=== PATIENT | male | born 1975 | race Caucasian/White ===

== ENCOUNTER 2019-09-09 02:10 | Day surgery (SDC) | payer MEDICAID, SELFPAY ==
[~2019-09-09] VITALS: Ht 188 cm; Wt 93.9 kg
[2019-09-09] MEDS ORDERED: SODIUM CHLORIDE 0.9% 1,000ML IVBOLUS ONE (02:30)
[2019-09-09] MEDS ORDERED: MORPHINE SULFATE 4 MG/ML, 1ML IVPush PRN ×3 (02:30→11:30)
[2019-09-09] MEDS ORDERED: ONDANSETRON 2MG/ML, 2ML IVPush ONE (02:30)
--- NOTE | 2019-09-09 02:31 | NUR ---
iv site started, labs drawn. monitors applied, siderails up x2, call light within reach
[2019-09-09] MEDS ORDERED: METF500T17 PO (02:32)
[2019-09-09] MEDS ORDERED: ONDANSETRON 2MG/ML, 2ML ONE ×2 (02:37→09:57)
[2019-09-09] MEDS ORDERED: MORPHINE SULFATE 4 MG/ML, 1ML ONE ×2 (02:38→05:15)
--- NOTE | 2019-09-09 02:41 | NUR ---
pt medicated per mar
[2019-09-09 02:58] LABS: BASOPHILS # (AUTO) 0.05 x10^3/uL (0-0.1); BASOPHILS % (AUTO) 1 % (0-1); EOSINOPHILS # (AUTO) 0.25 x10^3/uL (0-0.4); EOSINOPHILS % (AUTO) 2 % (1-7); LYMPHOCYTES # (AUTO) 1.98 x10^3/uL (1-3.4); LYMPHOCYTES % (AUTO) 19 % (22-44); MD NO; MEAN CORPUSCULAR HEMOGLOBIN 30.5 pg (27.5-34.5); MEAN CORPUSCULAR HGB CONC 33.2 g/dL (33.2-36.2); MEAN CORPUSCULAR VOLUME 91.7 fL (81-97); MEAN PLATELET VOLUME 8.7 fL (7.4-10.4); MONOCYTES # (AUTO) 1.08 x10^3/uL (0.2-0.8); MONOCYTES % (AUTO) 10 % (2-9); NEUTROPHILS # (AUTO) 7.16 x10^3/uL (1.8-6.8); NEUTROPHILS % (AUTO) 68 % (42-75); PLATELET COUNT 312 x10^3/uL (130-400); RED BLOOD COUNT 5.41 x10^6/uL (4.38-5.82); RED CELL DISTRIBUTION WIDTH 12.6 % (9.4-14.8)
[2019-09-09 03:08] LABS: ALBUMIN 3.9 g/dL (3.4-5.0); ANION GAP 7 mmol/L (5-15); CHLORIDE 104 mmol/L (98-107)
[2019-09-09 03:11] LABS: ALANINE AMINOTRANSFERASE 41 U/L (12-78); ALKALINE PHOSPHATASE 122 U/L (45-117); BILIRUBIN,TOTAL 1.5 mg/dL (0.2-1.0); CREATININE 0.97 mg/dL (0.7-1.3); TOTAL PROTEIN 8.3 g/dL (6.4-8.2)
--- NOTE | 2019-09-09 03:17 | NUR ---
PT RESTING WITH EYES CLOSED, MONITORS IN PLACE, STATED " NOT ABLE TO GIVE STOOL SAMPLE NOW", CALL LIGHT WITHIN REACH, AWAITING LAB AND CT RESULTS
--- NOTE | 2019-09-09 03:54 | NUR ---
STOOL SAMPLE TAKEN TO LAB
--- NOTE | 2019-09-09 03:58 | NUR ---
pt resting on gurney watching tv, denies needs, stated "pain is better", monitors in place, call light within reach. awaiting lab and ct result
[2019-09-09 04:48] LABS: CLOSTRIDIUM DIFFICILE ANTIGEN NEGATIVE; CLOSTRIDIUM DIFFICILE TOXIN NEGATIVE (Negative)
[2019-09-09] MEDS ORDERED: SODIUM CHLORIDE 0.9% 1,000 ML IV ONE (05:28)
[2019-09-09] MEDS ORDERED: HYDROmorphone 1 MG/ML, 1ML INJ IVPush PRN (05:30)
[2019-09-09] MEDS ORDERED: OMNIPAQUE 350 MG/ML, 100ML BOTTLE ONE (05:46)
--- NOTE | 2019-09-09 06:25 | NUR ---
PT RESTING WITH EYES CLOSED, NADN, RESPIRATIONS EVEN AND UNLABORED, MONITORS IN PLACE, SIDERAILSUP X2, CALL LIGHT WITHIN REACH. PT AWAITING ADMIT
--- NOTE | 2019-09-09 06:53 | NUR ---
RECEIVED REPORT FROM [facility] PT LAYING ON GURDHARA AWAKE & CALM, RESPONDS APPROP TO STAFF, COMFORT MEASURES PROVIDED, CALL LIGHT WITHIN REACH.
[2019-09-09 07:30] VITALS: BP 107/49
[2019-09-09] MEDS ORDERED: MIDAZOLAM 1 MG/ML, 2ML ONE (09:55)
[2019-09-09] MEDS ORDERED: FENTANYL PF 250 MCG/5ML ONE (09:55)
[2019-09-09] MEDS ORDERED: LIDOCAINE-MPF 2% ,5ML ONE (09:57)
[2019-09-09] MEDS ORDERED: PHENYLEPHRINE 10 MG/ML ONE (09:57)
[2019-09-09] MEDS ORDERED: PROPOFOL 10 MG/ML, 20ML ONE (09:57)
[2019-09-09] MEDS ORDERED: ROCURONIUM 10MG/ML,5ML ONE (09:57)
[2019-09-09] MEDS ORDERED: CEFOTETAN PMX 2GM/50ML 50 ML ONE (09:57)
[2019-09-09] MEDS ORDERED: DEXAMETHASONE 4 MG/ML, 1ML ONE (09:57)
[2019-09-09] MEDS ORDERED: BUPIVACAINE/EPI 0.5% 1:200K ONE (10:12)
[2019-09-09] MEDS ORDERED: PROMETHAZINE 25 MG/ML, 1ML IV PRN (11:00)
[2019-09-09] MEDS ORDERED: ACETAMINOPHEN 325 MG TABLET PO PRN (11:00)
[2019-09-09] MEDS ORDERED: HYDROmorphone 2 MG/ML, 1ML IVPush PRN (11:00)
[2019-09-09] MEDS ORDERED: MEPERIDINE/PF 25MG/ML,1ML IVPush PRN (11:00)
[2019-09-09] MEDS ORDERED: OXYcodone 5 MG/5 ML ORAL.SOL UDC PO PRN (11:00)
[2019-09-09] MEDS ORDERED: HALOPERIDOL 5 MG/ML IV PRN (11:00)
[2019-09-09] MEDS ORDERED: LABETALOL 5MG/ML, 20ML IV PRN (11:00)
[2019-09-09] MEDS ORDERED: hydrALAzine 20 MG/ML, 1ML IV PRN ×2 (11:00→11:30)
[2019-09-09] MEDS ORDERED: METHOCARBAMOL 1,000 MG in DEXTROSE 5% 100 ML IV PRN (11:00)
[2019-09-09] MEDS ORDERED: FENTANYL PF 100 MCG/2ML IV PRN (11:00)
[2019-09-09] MEDS ORDERED: BUPIVACAINE/EPI 0.5% 1:200K INFIL ONE (11:10)
[2019-09-09] MEDS ORDERED: SUGAMMADEX 200 MG/2 ML IVPush ONE (11:16)
[2019-09-09] MEDS ORDERED: POTASSIUM CHLORIDE 20 MEQ in D5%-0.45% NACL 1,000 ML IV SCH (11:21)
[2019-09-09] MEDS ORDERED: KETOROLAC 30 MG/1 ML IV PRN (11:30)
[2019-09-09] MEDS ORDERED: PROMETHAZINE 25 MG/ML, 1ML IM PRN (11:30)
[2019-09-09] MEDS ORDERED: DIPHENHYDRAMINE 25 MG CAPSULE PO PRN (11:30)
[2019-09-09] MEDS ORDERED: PROCHLORPERAZINE 5 MG/ML, 2ML IV ONE (11:30)
[2019-09-09] MEDS ORDERED: NICOTINE 21 MG/24 HR PATCH.TD24 TD ONE (11:30)
[2019-09-09] MEDS ORDERED: ONDANSETRON 2MG/ML, 2ML IVPush PRN (11:30)
[2019-09-09] MEDS ORDERED: OXYcodone 5 MG/5 ML ORAL.SOL UDC ONE (11:51)
[2019-09-09 12:15] VITALS: BP 123/86
[2019-09-09 12:19] VITALS: BP 123/86
[2019-09-09] MEDS ORDERED: FLU VACC QS2019-20 36MOS UP/PF 0.5 ML IM-VACC ONE (12:30)
[2019-09-09] MEDS: D5%-0.45NACL+KCL 20MEQ 1,000 ML IV SCH ×2 (13:09→20:51)
[2019-09-09] MEDS: OXYcodone/APAP 5/325MG TABLET PO PRN ×2 (16:32→21:02)
[2019-09-09] MEDS: INSULIN LISPRO 100 UNITS/ML, PEN SQ-INSULIN SCH ×2 (16:33→21:03)
[2019-09-09 19:00] VITALS: BP 116/75
[2019-09-09 23:56] VITALS: BP 134/88
[2019-09-10 04:23] VITALS: BP 123/73
[2019-09-10 05:04] LABS: BASOPHILS # (AUTO) 0.04 x10^3/uL (0-0.1); BASOPHILS % (AUTO) 0 % (0-1); EOSINOPHILS % (AUTO) 1 % (1-7); LYMPHOCYTES # (AUTO) 2.19 x10^3/uL (1-3.4); LYMPHOCYTES % (AUTO) 21 % (22-44); MD NO; MEAN CORPUSCULAR HEMOGLOBIN 30.8 pg (27.5-34.5); MEAN CORPUSCULAR HGB CONC 33.6 g/dL (33.2-36.2); MEAN CORPUSCULAR VOLUME 91.8 fL (81-97); MEAN PLATELET VOLUME 8.4 fL (7.4-10.4); MONOCYTES # (AUTO) 0.95 x10^3/uL (0.2-0.8); MONOCYTES % (AUTO) 9 % (2-9); NEUTROPHILS # (AUTO) 7.15 x10^3/uL (1.8-6.8); NEUTROPHILS % (AUTO) 69 % (42-75); PLATELET COUNT 276 x10^3/uL (130-400); RED BLOOD COUNT 4.57 x10^6/uL (4.38-5.82); RED CELL DISTRIBUTION WIDTH 12.7 % (9.4-14.8)
[2019-09-10 05:15] LABS: ANION GAP 6 mmol/L (5-15); CALCIUM 8.5 mg/dL (8.5-10.1); CHLORIDE 111 mmol/L (98-107); CREATININE 0.74 mg/dL (0.7-1.3)
[2019-09-10] MEDS: OXYcodone/APAP 5/325MG TABLET PO PRN ×2 (05:56→10:24)
[2019-09-10 06:52] VITALS: BP 117/74
[2019-09-10] MEDS: INSULIN LISPRO 100 UNITS/ML, PEN SQ-INSULIN SCH ×2 (07:00→11:25)
[2019-09-10] MEDS: D5%-0.45NACL+KCL 20MEQ 1,000 ML IV SCH ×2 (07:07→07:17)
[2019-09-10] MEDS ORDERED: ENOXAPARIN 40 MG/0.4 ML SQ SCH (09:00)
[2019-09-10] MEDS ORDERED: NICOTINE 21 MG/24 HR PATCH.TD24 TD SCH (09:00)
[2019-09-10] MEDS ORDERED: OXYcodone/APAP 5/325MG TABLET PO PRN (10:00)
[2019-09-10] MEDS ORDERED: KETOROLAC 10MG TABLET PO PRN (10:00)
[2019-09-10] MEDS ORDERED: KETO10TA PO (10:10)
[2019-09-10] MEDS ORDERED: TRAM50TA2 PO (10:10)
[2019-09-10] MEDS ORDERED: DOCU-131 PO (10:11)
[2019-09-10 12:15] VITALS: BP 120/72
== END 2019-09-10 10:07 | disposition home or self-care (01) ==
LOC: ED 05:49 → OUT 06:03 → EDIP 06:03 → UNDOADMIN 06:03 → 4NE 07:14 → EDIP 07:14 → EDSTATUS 14:17 → OUT 09-10 10:07 → UNDODISIN 09-10 12:36 → OUT 09-10 17:00
PROVIDERS: ATTEND Student in an Organized Health Care Education/Training Program
DX: Z03.89 Encounter for observation for other suspected diseases and conditions ruled out (principal); Z23 Encounter for immunization; E11.9 Type 2 diabetes mellitus without complications; F12.90 Cannabis use, unspecified, uncomplicated; F17.200 Nicotine dependence, unspecified, uncomplicated; Z79.84 Long term (current) use of oral hypoglycemic drugs
CPT/HCPCS: 00840; 36415; 49320; 71045; 74177; 80048; 80053; 82040; 82962; 83690; 85025; 87324; 89055; 90471; 90686; J1100; J1650; J1815; J1885; J2250; J2270; J2370; J2405; J2704; J3010; J3480; J3490; J7030; Q9967; G0378

== ENCOUNTER 2019-10-25 08:54 | Emergency (ER) | payer MEDICAID ==
[~2019-10-25] VITALS: Ht 188 cm; Wt 92.0 kg
[~2019-10-25 08:54] MED LIST: DOCU-131 PO; KETO10TA PO; METF500T17 PO; TRAM50TA2 PO
--- NOTE | 2019-10-25 09:00 | NUR ---
PT HERE WITH C/O REDNESS SURROUNDING SURGICAL INSERTION SITE. STATES HE HAD SOME PUSS COME OUT. PT WITH AREAS OF ERYTHMA, NO DRAINAGE APPECIATED. PT DENIES PAIN AT THIS TIME
[2019-10-25] MEDS ORDERED: ONDANSETRON ODT 4 MG PO ONE (09:30)
[2019-10-25] MEDS ORDERED: ONDANSETRON ODT 4 MG ONE (09:34)
[2019-10-25] MEDS ORDERED: INSULIN SINGLE DOSE, ER ONE (09:47)
--- NOTE | 2019-10-25 09:59 | NUR ---
PIV INITIATED, PT MEDICATED PER DEC. BOLUS HUNG PER MD ORDER
[2019-10-25] MEDS ORDERED: SODIUM CHLORIDE 0.9% 1,000ML IVBOLUS ONE (10:00)
[2019-10-25] MEDS ORDERED: INSULIN REGULAR 100 UNITS/ML, 3ML VIAL IV ONE (10:00)
[2019-10-25 10:12] VITALS: BP 124/91
[2019-10-25 10:12] LABS: BASOPHILS # (AUTO) 0.04 x10^3/uL (0-0.1); BASOPHILS % (AUTO) 0 % (0-1); EOSINOPHILS # (AUTO) 0.47 x10^3/uL (0-0.4); EOSINOPHILS % (AUTO) 4 % (1-7); LYMPHOCYTES # (AUTO) 2.17 x10^3/uL (1-3.4); LYMPHOCYTES % (AUTO) 21 % (22-44); MD NO; MEAN CORPUSCULAR HEMOGLOBIN 30.2 pg (27.5-34.5); MEAN CORPUSCULAR HGB CONC 33.8 g/dL (33.2-36.2); MEAN CORPUSCULAR VOLUME 89.4 fL (81-97); MEAN PLATELET VOLUME 8.5 fL (7.4-10.4); MONOCYTES # (AUTO) 0.26 x10^3/uL (0.2-0.8); MONOCYTES % (AUTO) 2 % (2-9); NEUTROPHILS # (AUTO) 7.64 x10^3/uL (1.8-6.8); NEUTROPHILS % (AUTO) 72 % (42-75); PLATELET COUNT 300 x10^3/uL (130-400); RED CELL DISTRIBUTION WIDTH 12.8 % (9.4-14.8)
[2019-10-25 10:18] LABS: ALBUMIN 3.7 g/dL (3.4-5.0); ANION GAP 7 mmol/L (5-15); CHLORIDE 101 mmol/L (98-107); CREATININE 1.02 mg/dL (0.7-1.3)
== END 2019-10-25 10:57 | disposition home or self-care (01) ==
LOC: ED 10:05
DX: L02.211 Cutaneous abscess of abdominal wall (principal); E11.65 Type 2 diabetes mellitus with hyperglycemia
CPT/HCPCS: 36415; 80048; 82040; 82962; 85025; 96361; 96374; 99283; J1815; J7030; Q0162

== ENCOUNTER 2020-07-08 22:12 | Inpatient (IN) | payer MEDICAID, OTHER ==
[~2020-07-08] VITALS: Ht 188 cm; Wt 85.7 kg
--- NOTE | 2020-07-08 22:30 | NUR ---
PT HAVING RIGHT SIDED DENTAL PAIN. PAIN STATRED THIS MORNING, PT CALLED OUT OF WORK, TOOK A NAP AND IS NOW HAVING 10/10 PAIN. PT TRIED SALT WATER SWISHES AND COLD COMPRESS WITHOUT SUCCESS. PT LAYING IN GURNEY, RESTLESS, GROANING IN PAIN. PT PLACED ON MONITORS AND SAFETY MEASURES IN PLACE
[2020-07-08] MEDS ORDERED: ONDANSETRON 2MG/ML, 2ML IVPush ONE (23:00)
[2020-07-08] MEDS ORDERED: AMPICILLIN/SULBACTAM 3 GM in SODIUM CHLORIDE 0.9% 100 ML IV ONE (23:00)
[2020-07-08] MEDS ORDERED: HYDROmorphone 1 MG/ML, 1ML INJ IV ONE (23:00)
[2020-07-08 23:06] LABS: BASOPHILS # (AUTO) 0.03 x10^3/uL (0-0.1); BASOPHILS % (AUTO) 0 % (0-1); EOSINOPHILS # (AUTO) 0.16 x10^3/uL (0-0.4); EOSINOPHILS % (AUTO) 2 % (1-7); LYMPHOCYTES # (AUTO) 1.72 x10^3/uL (1-3.4); LYMPHOCYTES % (AUTO) 17 % (22-44); MD NO; MEAN CORPUSCULAR HEMOGLOBIN 30.6 pg (27.5-34.5); MEAN CORPUSCULAR HGB CONC 33.9 g/dL (33.2-36.2); MEAN CORPUSCULAR VOLUME 90.1 fL (81-97); MEAN PLATELET VOLUME 8.5 fL (7.4-10.4); MONOCYTES # (AUTO) 0.97 x10^3/uL (0.2-0.8); MONOCYTES % (AUTO) 10 % (2-9); NEUTROPHILS # (AUTO) 7.18 x10^3/uL (1.8-6.8); NEUTROPHILS % (AUTO) 71 % (42-75); PLATELET COUNT 296 x10^3/uL (130-400); RED BLOOD COUNT 4.78 x10^6/uL (4.38-5.82); RED CELL DISTRIBUTION WIDTH 13.1 % (9.4-14.8)
[2020-07-08 23:14] LABS: ALBUMIN 3.6 g/dL (3.4-5.0); ANION GAP 7 mmol/L (5-15); CALCIUM 9.2 mg/dL (8.5-10.1); CHLORIDE 106 mmol/L (98-107); CREATININE 0.74 mg/dL (0.7-1.3)
[2020-07-08] MEDS ORDERED: HYDROmorphone 1 MG/ML, 1ML INJ ONE (23:15)
[2020-07-08] MEDS ORDERED: ONDANSETRON 2MG/ML, 2ML ONE (23:15)
--- NOTE | 2020-07-08 23:17 | NUR ---
PER DR. WHITNEY NO BLOOD CULTURES NEEDED BEFORE ABX ADMIN. PT DOES NOT MEET SEPSIS CRITERIA AT THIS TIME
--- NOTE | 2020-07-08 23:34 | NUR ---
PT MEDICATED PER EMAR, AND IS ON HIS WAY TO CT.
[2020-07-08] MEDS ORDERED: OMNIPAQUE 350 MG/ML, 75ML BOTTLE ONE (23:45)
[2020-07-09] MEDS ORDERED: SODIUM CHLORIDE 0.9% 1,000 ML IV SCH (00:56)
[2020-07-09] MEDS ORDERED: DOCUSATE 100 MG CAPSULE PO PRN (01:00)
[2020-07-09] MEDS ORDERED: ONDANSETRON 2MG/ML, 2ML IVPush PRN (01:00)
[2020-07-09] MEDS ORDERED: ACETAMINOPHEN 325 MG TABLET PO PRN (01:00)
[2020-07-09] MEDS: HEPARIN 5,000 UNITS/ML, 1ML SQ SCH ×3 (02:09→17:48)
[2020-07-09] MEDS ORDERED: NICOTINE 14MG/24 HR PATCH.TD24 ONE (02:17)
[2020-07-09] MEDS: NICOTINE 14MG/24 HR PATCH.TD24 TD SCH (02:19)
[2020-07-09 02:25] VITALS: BP 127/85
[2020-07-09] MEDS: morphine SULFATE 10 MG/ML, 1ML IVPush PRN ×4 (02:40→20:46)
[2020-07-09 07:30] VITALS: BP 133/90
[2020-07-09] MEDS: AMPICILLIN/SULBACTAM 3 GM in SODIUM CHLORIDE 0.9% 100 ML IV SCH ×3 (09:35→20:45)
[2020-07-09] MEDS: INSULIN REGULAR 100 UNITS/ML, 3ML VIAL SQ-INSULIN SCH ×4 (09:36→20:45)
[2020-07-09] MEDS: DOXYCYCLINE 100MG TABLET PO SCH ×2 (10:29→20:46)
[2020-07-09] MEDS ORDERED: GLUCAGON 1 MG IM PRN (11:30)
[2020-07-09] MEDS ORDERED: DEXTROSE 4 GM TAB.CHEW PO PRN (11:30)
[2020-07-09] MEDS ORDERED: DEXTROSE 50%, 50ML SYRINGE IVPush PRN (11:30)
[2020-07-09] MEDS: SODIUM CHLORIDE FLUSH 10ML SYR IVF SCH ×2 (13:13→20:36)
[2020-07-09 14:14] VITALS: BP 116/83
[2020-07-09 20:03] VITALS: BP 117/81
[2020-07-10] MEDS: HEPARIN 5,000 UNITS/ML, 1ML SQ SCH ×3 (00:07→16:42)
[2020-07-10 00:39] VITALS: BP 98/68
[2020-07-10] MEDS: AMPICILLIN/SULBACTAM 3 GM in SODIUM CHLORIDE 0.9% 100 ML IV SCH ×3 (04:47→21:03)
[2020-07-10] MEDS: morphine SULFATE 10 MG/ML, 1ML IVPush PRN ×4 (05:18→21:03)
[2020-07-10 06:00] LABS: BASOPHILS # (AUTO) 0.04 x10^3/uL (0-0.1); BASOPHILS % (AUTO) 0 % (0-1); EOSINOPHILS % (AUTO) 3 % (1-7); LYMPHOCYTES # (AUTO) 2.27 x10^3/uL (1-3.4); LYMPHOCYTES % (AUTO) 22 % (22-44); MD NO; MEAN CORPUSCULAR HEMOGLOBIN 30.3 pg (27.5-34.5); MEAN CORPUSCULAR VOLUME 91.9 fL (81-97); MEAN PLATELET VOLUME 8.3 fL (7.4-10.4); MONOCYTES # (AUTO) 1.17 x10^3/uL (0.2-0.8); MONOCYTES % (AUTO) 11 % (2-9); NEUTROPHILS # (AUTO) 6.68 x10^3/uL (1.8-6.8); NEUTROPHILS % (AUTO) 64 % (42-75); PLATELET COUNT 291 x10^3/uL (130-400); RED BLOOD COUNT 4.88 x10^6/uL (4.38-5.82)
[2020-07-10 06:37] LABS: ANION GAP 9 mmol/L (5-15); CALCIUM 9.3 mg/dL (8.5-10.1); CHLORIDE 106 mmol/L (98-107)
[2020-07-10 06:39] LABS: CREATININE 0.71 mg/dL (0.7-1.3)
[2020-07-10 06:55] VITALS: BP 122/81
[2020-07-10] MEDS: INSULIN REGULAR 100 UNITS/ML, 3ML VIAL SQ-INSULIN SCH ×4 (07:00→20:58)
[2020-07-10] MEDS: NICOTINE 14MG/24 HR PATCH.TD24 TD SCH (09:21)
[2020-07-10] MEDS: DOXYCYCLINE 100MG TABLET PO SCH ×2 (09:24→21:02)
[2020-07-10] MEDS: SODIUM CHLORIDE FLUSH 10ML SYR IVF SCH ×2 (09:24→21:03)
[2020-07-10 12:55] VITALS: BP 104/70
[2020-07-10 18:58] VITALS: BP 100/66
[2020-07-11 00:01] VITALS: BP 99/62
[2020-07-11] MEDS: HEPARIN 5,000 UNITS/ML, 1ML SQ SCH ×2 (00:58→08:59)
[2020-07-11] MEDS: AMPICILLIN/SULBACTAM 3 GM in SODIUM CHLORIDE 0.9% 100 ML IV SCH (05:15)
[2020-07-11] MEDS: INSULIN REGULAR 100 UNITS/ML, 3ML VIAL SQ-INSULIN SCH ×2 (07:00→11:00)
[2020-07-11 07:01] LABS: BASOPHILS # (AUTO) 0.04 x10^3/uL (0-0.1); BASOPHILS % (AUTO) 0 % (0-1); EOSINOPHILS # (AUTO) 0.35 x10^3/uL (0-0.4); EOSINOPHILS % (AUTO) 4 % (1-7); LYMPHOCYTES % (AUTO) 23 % (22-44); MD NO; MEAN CORPUSCULAR HGB CONC 32.7 g/dL (33.2-36.2); MEAN CORPUSCULAR VOLUME 91.6 fL (81-97); MEAN PLATELET VOLUME 8.2 fL (7.4-10.4); MONOCYTES # (AUTO) 0.93 x10^3/uL (0.2-0.8); MONOCYTES % (AUTO) 10 % (2-9); NEUTROPHILS # (AUTO) 5.84 x10^3/uL (1.8-6.8); NEUTROPHILS % (AUTO) 63 % (42-75); PLATELET COUNT 307 x10^3/uL (130-400); RED BLOOD COUNT 4.96 x10^6/uL (4.38-5.82); RED CELL DISTRIBUTION WIDTH 12.8 % (9.4-14.8)
[2020-07-11] MEDS: morphine SULFATE 10 MG/ML, 1ML IVPush PRN (08:11)
[2020-07-11] MEDS: NICOTINE 14MG/24 HR PATCH.TD24 TD SCH (08:16)
[2020-07-11] MEDS: DOXYCYCLINE 100MG TABLET PO SCH (08:59)
[2020-07-11] MEDS: SODIUM CHLORIDE FLUSH 10ML SYR IVF SCH (09:00)
[2020-07-11] MEDS ORDERED: LACT1CAP35 PO (09:22)
[2020-07-11] MEDS ORDERED: AMOX1TAB64 PO (09:22)
[2020-07-11 10:40] VITALS: BP 116/80
== END 2020-07-11 13:06 | disposition home or self-care (01) | DRG 872 ==
LOC: ED 22:42 → EDIP 07-09 00:54 → 3N 07-09 02:17 → DCLOUNGE 07-11 12:54
PROVIDERS: ADMIT Family Medicine; ATTEND Family Medicine
DX: A41.9 Sepsis, unspecified organism (principal); L03.211 Cellulitis of face; E11.9 Type 2 diabetes mellitus without complications; F17.200 Nicotine dependence, unspecified, uncomplicated; K02.9 Dental caries, unspecified; K04.7 Periapical abscess without sinus; Z71.6 Tobacco abuse counseling
CPT/HCPCS: 36415; 70100; 70487; 80048; 82040; 82962; 85025; G0378; J0295; J1170; J1644; J1815; J2405; Q9967; J2270; J7030